=== PATIENT | male | born 1960 | race Caucasian/White ===

== ENCOUNTER 2017-11-03 16:14 | Emergency (ER) | payer SELFPAY ==
--- NOTE | 2017-11-03 16:50 | ED ---
Neuro HPI - General Chief Complaint: Neuro Symptoms/Deficit Stated Complaint: Double vision/high blood sugar Time Seen by Provider: 11/03/17 16:28 Source: patient Mode of arrival: wheelchair Limitations: no limitations - History of Present Illness Is the patient presenting with stroke symptoms?: No Last Known Well Date: 11/02/17 Last Known Well Time: 15:00 Onset/Timin -: hour(s) Initial Comments: This patient is a 57-year-old man who presents to be evaluated for "blurred vision." The patient states that things started yesterday in the afternoon proximal 24-25 hrs. ago. He states that he was having an argument at the time. He noticed that he seemed to be having double vision. He states the symptoms resolve if he closes either eye. The patient stated that he was just going to go see an eye doctor on Saturday. When the symptoms did not resolve by today, his partner convinced him to be evaluated here for this. The patient states other than that he has what he is rating as 1 out of 10 pain to the left maxillary or retro-orbital area. Patient states that he noted the pain there earlier today. He describes it as dull. He has not noted worsening or relieving factors. No other associated symptoms. Location: other ([place]) History of same: No Place: home Severity: moderate Improves With: none Worsens With: none On Anticoagulants: No Context: sudden onset Associated Symptoms: denies other symptoms Treatments Prior to Arrival: none - Related Data Home Medications: Home Medications Medication Instructions Recorded Confirmed Aspirin EC [Ecotrin Low Dose] 81 mg PO DAILY 11/03/17 11/03/17 Fenofibrate(Unknown Dose) 1 tab PO DAILY 11/03/17 11/03/17 Synthroid(Unknown Dose) 1 tab PO DAILY 11/03/17 11/03/17 metFORMIN HCL [Glucophage] 500 mg PO DAILY 11/03/17 11/03/17 Previous Rx's Medication Instructions Recorded Amoxicillin/Potassium Clav 1 tab PO Q12HR #14 tab 11/03/17 [Augmentin 875-125 Tablet] Allergies/Adverse Reactions: Allergies Allergy/AdvReac Type Severity Reaction Status Date / Time No Known Allergies Allergy Verified 11/03/17 17:12 Review of Systems ROS Statement: Those systems with pertinent positive or pertinent negative responses have been documented in the HPI. ROS Other: All systems not noted in ROS Statement are negative. Constitutional: Denies: fever, chills Eyes: Reports: vision change. Denies: eye pain, eye discharge ENT: Denies: ear pain, hearing loss, epistaxis Respiratory: Denies: cough, dyspnea Cardiovascular: Denies: chest pain, palpitations, edema, syncope Gastrointestinal: Denies: abdominal pain, nausea, vomiting Skin: Denies: rash Neurological: Reports: as per HPI, headache. Denies: weakness, numbness, paresthesias, confusion, abnormal gait, vertigo Hematological/Lymphatic: Denies: easy bleeding General Exam Limitations: no limitations General appearance: alert, in no apparent distress Head exam: Present: atraumatic, normocephalic Eye exam: Present: normal appearance, PERRL, EOMI. Absent: scleral icterus, conjunctival injection, nystagmus, periorbital swelling, periorbital tenderness Pupils: Present: other (Patient has normal extra ocular movement. There is no diplopia while following a flashlight.) ENT exam: Present: normal oropharynx, mucous membranes moist Neck exam: Present: normal inspection, full ROM, other (No carotid bruit) Respiratory exam: Present: normal lung sounds bilaterally. Absent: respiratory distress, wheezes, rales, rhonchi, stridor Cardiovascular Exam: Present: regular rate, normal rhythm, normal heart sounds. Absent: systolic murmur, diastolic murmur, rubs, gallop GI/Abdominal exam: Present: soft. Absent: tenderness, guarding, rebound Extremities exam: Present: normal inspection, normal capillary refill. Absent: pedal edema, calf tenderness Back exam: Present: normal inspection Neurological exam: Present: alert, oriented X3, CN II-XII intact, motor sensory deficit. Absent: normal gait Skin exam: Present: warm, dry, intact, normal color. Absent: rash Stroke MDM - Lab Data Result diagrams: 11/03/17 16:34 11/03/17 16:34 Lab Results 11/03/17 11/03/17 11/03/17 Range/Units 16:34 16:34 16:34 WBC 7.3 (3.8-10.6) k/uL RBC 5.34 (4.30-5.90) m/uL Hgb 16.2 (13.0-17.5) gm/dL Hct 46.1 (39.0-53.0) % MCV 86.3 (80.0-100.0) fL MCH 30.3 (25.0-35.0) pg MCHC 35.1 (31.0-37.0) g/dL RDW 12.1 (11.5-15.5) % Plt Count 210 (150-450) k/uL Neutrophils % 57 % Lymphocytes % 30 % Monocytes % 6 % Eosinophils % 4 % Basophils % 1 % Neutrophils # 4.2 (1.3-7.7) k/uL Lymphocytes # 2.2 (1.0-4.8) k/uL Monocytes # 0.4 (0-1.0) k/uL Eosinophils # 0.3 (0-0.7) k/uL Basophils # 0.1 (0-0.2) k/uL PT 9.8 (9.0-12.0) sec INR 1.0 (<1.2) APTT 22.8 (22.0-30.0) sec Sodium 143 (137-145) mmol/L Potassium 4.1 (3.5-5.1) mmol/L Chloride 103 (98-107) mmol/L Carbon Dioxide 26 (22-30) mmol/L Anion Gap 14 mmol/L BUN 16 (9-20) mg/dL Creatinine 1.07 (0.66-1.25) mg/dL Est GFR (CKD-EPI)AfAm >90 (>60 ml/min/1.73 sqM) Est GFR (CKD-EPI)NonAf 78 (>60 ml/min/1.73 sqM) Glucose 149 H (74-99) mg/dL POC Glucose (mg/dL) (75-99) mg/dL POC Glu D[employer] Worker ID Calcium 9.4 (8.4-10.2) mg/dL Total Bilirubin 0.5 (0.2-1.3) mg/dL AST 39 (17-59) U/L ALT 45 (21-72) U/L Alkaline Phosphatase 85 (38-126) U/L Troponin I (0.000-0.034) ng/mL Total Protein 6.8 (6.3-8.2) g/dL Albumin 4.4 (3.5-5.0) g/dL 05/13/18 05/13/18 Range/Units 16:34 16:58 WBC (3.8-10.6) k/uL RBC (4.30-5.90) m/uL Hgb (13.0-17.5) gm/dL Hct (39.0-53.0) % MCV (80.0-100.0) fL MCH (25.0-35.0) pg MCHC (31.0-37.0) g/dL RDW (11.5-15.5) % Plt Count (150-450) k/uL Neutrophils % % Lymphocytes % % Monocytes % % Eosinophils % % Basophils % % Neutrophils # (1.3-7.7) k/uL Lymphocytes # (1.0-4.8) k/uL Monocytes # (0-1.0) k/uL Eosinophils # (0-0.7) k/uL Basophils # (0-0.2) k/uL PT (9.0-12.0) sec INR (<1.2) APTT (22.0-30.0) sec Sodium (137-145) mmol/L Potassium (3.5-5.1) mmol/L Chloride (98-107) mmol/L Carbon Dioxide (22-30) mmol/L Anion Gap mmol/L BUN (9-20) mg/dL Creatinine (0.66-1.25) mg/dL Est GFR (CKD-EPI)AfAm (>60 ml/min/1.73 sqM) Est GFR (CKD-EPI)NonAf (>60 ml/min/1.73 sqM) Glucose (74-99) mg/dL POC Glucose (mg/dL) 132 H (75-99) mg/dL POC Glu [employer] Worker ID Misty Vilma Calcium (8.4-10.2) mg/dL Total Bilirubin (0.2-1.3) mg/dL AST (17-59) U/L ALT (21-72) U/L Alkaline Phosphatase (38-126) U/L Troponin I <0.012 (0.000-0.034) ng/mL Total Protein (6.3-8.2) g/dL Albumin (3.5-5.0) g/dL - Medical Decision Making This patient is a 57-year-old man with visual disturbance going on for a little over 24 hours. His workup here is unremarkable other than showing a little bit of left ethmoid sinusitis, consistent with where the patient's feeling some facial/head pressure. We'll start patient on antibiotics here and continue this course, and have him see ophthalmology as well as neurology. Discussed the appropriate follow-up as well as return parameters. All questions answered. - EKG Data -: EKG Interpreted by Me EKG shows normal: sinus rhythm, axis (Normal), intervals (Normal), QRS complexes (Normal) Rate: normal (Rate 70 bpm) Interpretation: nonspecific ST-T wave changes Past Medical History Past Medical History: CVA/TIA, Diabetes Mellitus, Hyperlipidemia, Thyroid Disorder History of Any Multi-Drug Resistant Organisms: None Reported Past Surgical History: No Surgical Hx Reported Past Psychological History: No Psychological Hx Reported Smoking Status: Never smoker Past Alcohol Use History: Rare Past Drug Use History: None Reported Course Vital Signs 11/03/17 11/03/17 11/03/17 16:21 17:24 17:49 Temperature 98.1 F 99 F Pulse Rate 71 67 68 Respiratory 18 16 18 Rate Blood Pressure 170/86 178/91 150/79 O2 Sat by Pulse 96 97 98 Oximetry Disposition Clinical Impression: Vision disturbance, Sinusitis Disposition: HOME SELF-CARE Condition: Good Instructions: Sinusitis (ED), Diplopia (ED) Prescriptions: Amoxicillin/Potassium Clav [Augmentin 875-125 Tablet] 1 tab PO Q12HR #14 tab Is patient prescribed a controlled substance at d/c from ED?: No Referrals: Erica Guardado MD [Primary Care Provider] - 1-2 days Dimitri Steve MD [STAFF PHYSICIAN] - 1-2 days Alireza Quintana MD [STAFF PHYSICIAN] - 1-2 days
[2017-11-03 16:53] LABS: Basophils # (A) 0.1 k/uL (0-0.2); Basophils % (A) 1 %; Eosinophils # (A) 0.3 k/uL (0-0.7); Eosinophils % (A) 4 %; HCT 46.1 % (39.0-53.0); HGB 16.2 gm/dL (13.0-17.5); Lymphocytes # (A) 2.2 k/uL (1.0-4.8); Lymphocytes % (A) 30 %; MCH 30.3 pg (25.0-35.0); MCHC 35.1 g/dL (31.0-37.0); MCV 86.3 fL (80.0-100.0); Mean Platelet Volume 7.4; Monocytes # (A) 0.4 k/uL (0-1.0); Monocytes % (A) 6 %; Neutrophils # (A) 4.2 k/uL (1.3-7.7); Neutrophils % (A) 57 %; Platelet Count 210 k/uL (150-450); RBC 5.34 m/uL (4.30-5.90); RDW 12.1 % (11.5-15.5); WBC 7.3 k/uL (3.8-10.6)
[2017-11-03 16:59] LABS: Glucose,Whole Blood 132 mg/dL (75-99)
[2017-11-03 17:03] LABS: Partial Thromboplastin Time 22.8 sec (22.0-30.0); Prothrombin Time 9.8 sec (9.0-12.0)
[2017-11-03 17:04] LABS: ALT 45 U/L (21-72); AST 39 U/L (17-59); Albumin 4.4 g/dL (3.5-5.0); Alkaline Phosphatase 85 U/L (38-126); Anion Gap 14 mmol/L; Blood Urea Nitrogen 16 mg/dL (9-20); Calcium 9.4 mg/dL (8.4-10.2); Carbon Dioxide 26 mmol/L (22-30); Chloride 103 mmol/L (98-107); Glucose 149 mg/dL (74-99); Potassium 4.1 mmol/L (3.5-5.1); Sodium 143 mmol/L (137-145); Total Bilirubin 0.5 mg/dL (0.2-1.3); Total Protein 6.8 g/dL (6.3-8.2)
--- NOTE | 2017-11-03 17:18 | XR ---
EXAMINATION TYPE: XR chest 2V DATE OF EXAM: 11/03/2017 COMPARISON: NONE HISTORY: Dizziness TECHNIQUE: Frontal and lateral views of the chest are obtained. FINDINGS: There is no focal air space opacity, pleural effusion, or pneumothorax seen. The cardiac silhouette size is within normal limits. The osseous structures are intact. IMPRESSION: No acute cardiopulmonary process.
--- NOTE | 2017-11-03 17:28 | CT ---
EXAMINATION TYPE: CT brain wo con DATE OF EXAM: 11/03/2017 COMPARISON: NONE HISTORY: Double vision. CT DLP: 1041.8 mGycm. Automated Exposure Control for Dose Reduction was Utilized. TECHNIQUE: CT scan of the head is performed without contrast. FINDINGS: There is no acute intracranial hemorrhage, mass effect, or midline shift identified. No s uspicious extra-axial fluid collection is identified. The ventricles and sulci are within normal mcnamara its in size. 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 The globes are intact and the remaining visualized sinuses are clear. Dystrop hic calcifications are seen within the right basal ganglia. IMPRESSION: No acute intracranial hemorrhage, mass effect, or midline shift is seen.
[2017-11-03] MEDS ORDERED: AMOXIC-POT CLAV 875MG STARTER 2 EACH TABLET PO STA (17:36)
[2017-11-03 17:51] VITALS: BP 150/79; PULSE 68; RESP 18; TEMP 99
== END 2017-11-03 17:49 | disposition home or self-care (01) ==
LOC: EC 16:14
DX: H53.9 Unspecified visual disturbance (principal); J32.2 Chronic ethmoidal sinusitis; E11.9 Type 2 diabetes mellitus without complications; E78.5 Hyperlipidemia, unspecified; E07.9 Disorder of thyroid, unspecified; Z86.73 Personal history of transient ischemic attack (TIA), and cerebral infarction without residual deficits; Z79.82 Long term (current) use of aspirin; Z79.84 Long term (current) use of oral hypoglycemic drugs; Z79.899 Other long term (current) drug therapy
CPT/HCPCS: 36415; 70450; 71046; 80053; 84484; 85025; 85610; 85730; 93005; 99284